=== PATIENT | male | born 1995 | race African-American/Black ===

== ENCOUNTER 2017-04-19 15:12 | Inpatient (IN) | payer BC, OTHER ==
[~2017-04-19] VITALS: Ht 182.9 cm; Wt 75.8 kg
--- NOTE | ~2017-04-19 | O ---
[facility] [place] [address] OPERATIVE REPORT Name: CHIQUI MASTERSON Room #: 541-P [facility] IN M.R.#: [id number] Admission: 04/19/17 Attend Phys: Willian Escobar MD, F Discharge: 04/26/17 Date of : [birth year] Report #: [id number] THIS REPORT FOR: //name// [facility] DATE OF SERVICE: 04/23/2017 PREOPERATIVE DIAGNOSIS: Hemoperitoneum with possible pelvic abscess. POSTOPERATIVE DIAGNOSIS: Hemoperitoneum with developing pelvic abscess. PROCEDURE: Diagnostic laparoscopy, evacuation of peritoneal hematoma, and drainage of pelvic abscess. SURGEON: Willian Escobar M.D. INDICATIONS: A 21-year-old male, who underwent a laparoscopic appendectomy on 04/13/2016 with early appendicitis and exudate on the appendix, who then developed in the first 24 hours following operation a hemoperitoneum. The patient was sent home on amoxicillin and was stabilized, but then he began to develop a fever with abdominal pain and nausea on 04/19/2017 and returned to the emergency room where a CT scan demonstrating hemoperitoneum and hemoglobin of 8. The patient has been on IV antibiotics, and a repeat CT scan on 04/23/2017 demonstrated increasing amount of fluid in the perihepatic area, as well as the pelvis, requiring operation and drainage. OPERATIVE PROCEDURE: The patient was on antibiotics. He had a thorough discussion of the procedure, benefits, and risks, gave informed consent to proceed. He was brought to the operating suite and had satisfactory induction of general endotracheal anesthesia. The patient's initial strapping to the table was performed for secure placement on the table in the supine position. A Kearney catheter was inserted. Sterile paint of the entire abdomen was performed with DuraPrep solution. Initially, the infraumbilical incision was opened. The 0 PDS suture was cut. The fascia was then opened with finger dissection gently. Complete finger dissection in a circumferential manner sweeping 360 degrees. The fascia and sweeping of the bowel away from the anterior abdominal wall was performed. The 12 mm Cristina port with the balloon was then inflated under direct vision. Pneumoperitoneum was established. Photographs were taken and made part of the medical record. This revealed extensive hemoperitoneum. A 5 mm port was placed just to the left of midline under direct vision. Again, the 12 mm port was removed and finger dissection and finger sweeping of the bowel away from the anterior abdominal wall in 360 degree circumferential manner was performed. The loculation of the pelvis was entered with finger dissection and copious evacuation of the hemoperitoneum, which had a foul smell to it was performed. Cultures were taken times 2 of the peritoneal fluid. The [address] [address] OPERATIVE REPORT Name: CHIQUI MASTERSON Room #: 541-P DIS IN M.R.#: [id number] Admission: 04/19/17 Attend Phys: Willian Escobar MD, F Discharge: 04/26/17 Date of : [birth year] Report #: [id number] pneumoperitoneum was reinitiated and again copious irrigation of the peritoneal cavity including the perihepatic tissues with 9 liters of saline and evacuation of all irrigating solution was performed. After this was completed, a 15-Syriac ESTUARDO drain was inserted by finger dissection into the pelvic hematoma and abscess cavity by finger dissection. After positioning, the pneumoperitoneum was deflated. 12 mm port was removed. 5 mm port had been removed previously. 0 PDS suture was utilized to approximate the fascia at the infraumbilical position under direct vision. Skin margins were then approximated with subcuticular 4-0 Monocryl. Estimated blood loss of new blood was less than 10 mL. Old blood evacuation was approximately 500 mL. The patient tolerated the procedure well. He had a reduction in temperature during the procedure to normal. His sinus tachycardia resolved to a pulse rate between 80 and 90. He returned to recovery room in stable and satisfactory condition with Kearney to dependent drainage and satisfactory urine output. <ELECTRONICALLY SIGNED> By: Willian Escobar MD, FACS 04/27/17 1720 [id number] Willian Escobar MD, FACS /nt
--- NOTE | ~2017-04-19 | HC ---
[facility] [place] [address] CONSULTATION Name: CHIQUI MASTERSON Room #: 541- ADM IN M.R.#: [id number] Admission: 04/19/17 Attend Phys: Willian Escobar MD, F Discharge: Date of : [birth year] Report #: [id number] THIS REPORT FOR: //name// [facility] DATE OF SERVICE: 04/20/2017 ATTENDING PHYSICIAN: Dr. Escobar. REASON FOR CONSULTATION: Antibiotic management. HISTORY OF PRESENT ILLNESS: The patient is a 21-year-old -[place] man who undergoes laparoscopic appendectomy on April [address] Escobar. Postoperatively, he develops an anemia. The patient develops increasing pain, fevers and is admitted with a diagnosis of intraabdominal pain, possibly secondary to bleeding from surgical site. The patient is on treatment with Rocephin and Flagyl at the hospital. On outpatient, he has been on Augmentin 875 b.i.d. as well as p.r.n. ondansetron, ibuprofen and hydrocodone. At present, he is mainly complaining of significant abdominal pain. I did discuss the patient's situation with Dr. Willian Escobar pre and post-consultation and I recommended changing antibiotic to Zosyn and continue Flagyl. The patient is mainly complaining of abdominal pains and nausea. PAST MEDICAL HISTORY: Essentially noncontributory besides recent appendectomy. DRUG ALLERGIES: None listed. MEDICATIONS: The patient is on Rocephin 1 gram IV daily, Flagyl 1 gram IV daily, intravenous fluids D5 half normal saline with 20 mEq of potassium chloride 1000 mL every 8 hours, p.r.n. ondansetron, p.r.n. hydromorphone. SOCIAL HISTORY: See H and P, old records. FAMILY HISTORY: See H and P, old records. REVIEW OF SYSTEMS: As above. PHYSICAL EXAMINATION: GENERAL: Well developed, not toxic looking man, but rather uncomfortable. VITAL SIGNS: Temperature maximum , 100.2 on April 20 at midnight, down to on April 20 at 2000 hours, down to 97.8 today, pulse 97, respirations 20, BP 118/66. HEENMT: Within range. NECK: Supple, no thyromegaly. LUNGS: Clear. [facility] [address] [place] [address] CONSULTATION Name: CHIQUI MASTERSON Room #: 541-P ADM IN M.R.#: [id number] Admission: 04/19/17 Attend Phys: Willian Escobar MD, F Discharge: Date of : [birth year] Report #: [id number] HEART: S1, S2. ABDOMEN: Very tender with rebound tenderness and decreased bowel sounds. GENITALIA AND RECTAL: Deferred. EXTREMITIES: No clubbing, cyanosis. NEUROLOGIC: Grossly within normal limits. LABORATORY DATA: Sodium 134, potassium 3.9, CO2 27, BUN 12, creatinine 0.9, total bilirubin 1.1. Alkaline phosphatase normal, SGPT normal, albumin 2.6. White blood cell count is 14,800; hemoglobin 8 g/dL; platelets 329,000 with differential revealing 79% neutrophils, 7% lymphocytes, 11% monocytes. Note is made that the hemoglobin was 12.7 on April 13 and on April 14, the hemoglobin drops to 8.1 g/dL. MICROBIOLOGY DATA: Blood cultures obtained on readmission and they are negative so far. RADIOLOGY EVALUATION: A CT scan of the abdomen and pelvis on April 19 revealed large amount of heterogeneous fluid throughout the abdomen, primarily within the pelvic region, most likely hemorrhagic in nature. No abscess or free fluid noted. ASSESSMENT: 1. Fever, possibly secondary #2. 2. Intraperitoneal bleed. 3. Status post laparoscopic appendectomy. SUGGESTIONS: Recommend continue Flagyl. Discontinue Rocephin, start Zosyn 3.375 grams IV every 6 hours, which has some wider spectrum coverage against entire gram-negatives as well as pseudomonas and anaerobic organism of the microaerolophilic Streptococci type germs. The patient is not toxic. We will continue current regimen and as discussed with Dr. Escobar, We will repeat CT scan of abdomen and pelvis on Thursday. Dr. Willian Escobra, thank you for requesting my suggestions in the care of your patient. <ELECTRONICALLY SIGNED> By: Fish Hawkins MD 04/22/17 1033 [id number] 2225 Fish Hawkins MD /nt
--- NOTE | ~2017-04-19 | HC ---
[facility] [place] [address] CONSULTATION Name: CHIQUI MASTERSON Room #: 541-P ADM IN M.R.#: [id number] Admission: 04/19/17 Attend Phys: Willian Escobar MD, F Discharge: Date of : [birth year] Report #: [id number] THIS REPORT FOR: //name// [facility] DATE OF SERVICE: 04/21/2017 REASON FOR CONSULTATION: Left pleuritic chest pain. IMPRESSION: 1. Left lower lobe atelectasis, possible pneumonia, small effusion. 2. Intraperitoneal bleed. 3. Status post laparoscopic appendectomy. 4. Question history of asthma. PLAN: Pulmonary toilet, aerosol therapy. Monitor closely with you. We will need to watch for possible intraabdominal abscess. HISTORY OF PRESENT ILLNESS: A very pleasant 21-year-old male admitted on April 13 with abdominal pain, taken to surgery on April 13 for nonperforated lap appendectomy. It appears did well and discharged home on the . Returned to emergency room on the with nausea, vomiting, abdominal pain, loose stools, fever. Relates abdomen was better today; however, developed left-sided chest pain with movement of arm and deep breath. PAST SURGICAL HISTORY: Laparoscopic appendectomy. CURRENT MEDICATIONS: Included Dilaudid, Pepcid, Zocid, Reglan. ALLERGIES: No known. FAMILY HISTORY: Negative for blood clots. SOCIAL HISTORY: Positive tobacco in past. Works as a security software engineer. Negative drugs of abuse. REVIEW OF SYSTEMS: He relates he had respiratory disease. He does not recall and parents were not in room. No heart problems, no history of DVT, PE. He does relate he has had some loose stools in the past and he is having some loose stools at present. He denies hemoptysis or hematemesis, bilious colored vomitus, no edema. PHYSICAL EXAMINATION: VITAL SIGNS: T-max 100.9, pulse 94, respirations 20, BP 121/65. EYES: Negative icterus. [facility] [address] [place] [address] CONSULTATION Name: CHIQUI MASTERSON Room #: 541-P ADM IN M.R.#: [id number] Admission: 04/19/17 Attend Phys: Willian Escobar MD, F Discharge: Date of : [birth year] Report #: [id number] NECK: Trachea midline. LUNGS: Showed slight decrease on left and obvious pain with deep inspiration. HEART: Regular. ABDOMEN: Bowel sounds present, mild tender. EXTREMITIES: Showed no clubbing, cyanosis, edema. NEUROLOGIC: The patient is alert and oriented. LABORATORY DATA: Venous Doppler of lower extremity negative. CT PE protocol showed left lower lobe atelectasis, small left effusion, we will need to monitor this, intraabdominal ascites, pH 7.429, pCO2 38, pO2 80 on room air. Chest x-ray showed no acute. Blood cultures negative. We will follow closely with you. By: 1950 0054 Maikel Augustin MD /nt
[~2017-04-19 15:12] MED LIST: AUGMENTIN 875875 MG PO; HYDROCODONE-AP1 EAC6 PO; IBUPROFEN 600600 M1 PO; ZOFRAN4 MG PO
[2017-04-19 15:13] VITALS: BP 109/64
[2017-04-19 16:00] LABS: HEMATOCRIT 28.2 % (42.0-52.0); HEMOGLOBIN 9.3 gm/dL (14.0-18.0); MCH 27.2 pg (26.0-34.0); MCHC 32.8 g/dL (28.0-37.0); MCV 82.9 fL (80.0-100.0); PLATELET COUNT 376 thou/uL (150-400); RBC 3.41 mil/uL (4.50-6.00); RDW 15.2 % (10.5-14.5); WBC 16.7 thou/uL (4.0-11.0)
[2017-04-19 16:09] LABS: MANUAL DIFF YES
[2017-04-19 16:15] LABS: CALCIUM 9.4 mg/dL (8.5-10.1); POTASSIUM 3.6 mmol/L (3.5-5.1)
[2017-04-19 16:20] LABS: ALBUMIN 3.3 g/dL (3.4-5.0); TOTAL BILIRUBIN 1.6 mg/dL (<0.1-1.0); TOTAL PROTEIN 8.1 g/dL (6.4-8.2)
[2017-04-19 17:17] LABS: ABSOLUTE NEUTROPHILS 13.7 thou/uL (1.4-8.2); TOTAL CELL COUNT 100
[2017-04-19 19:50] VITALS: BP 108/51
[2017-04-19 23:30] VITALS: BP 129/62
[2017-04-20 04:21] LABS: HEMATOCRIT 24.4 % (42.0-52.0); MCH 27.2 pg (26.0-34.0); MCHC 32.7 g/dL (28.0-37.0); MCV 83.2 fL (80.0-100.0); PLATELET COUNT 329 thou/uL (150-400); RBC 2.94 mil/uL (4.50-6.00); RDW 15.2 % (10.5-14.5); WBC 14.8 thou/uL (4.0-11.0)
[2017-04-20 04:25] LABS: MANUAL DIFF YES
[2017-04-20 05:37] LABS: ALBUMIN 2.6 g/dL (3.4-5.0); CALCIUM 8.6 mg/dL (8.5-10.1); CREATININE 0.9 mg/dL (0.7-1.3); POTASSIUM 3.9 mmol/L (3.5-5.1); TOTAL BILIRUBIN 1.1 mg/dL (<0.1-1.0); TOTAL PROTEIN 6.9 g/dL (6.4-8.2)
[2017-04-20 07:40] VITALS: BP 123/65
[2017-04-20 08:14] LABS: ABSOLUTE NEUTROPHILS 11.7 thou/uL (1.4-8.2); ATYPICAL LYMPHS 1 %; METAMYELOCYTES 1 %; MYELOCYTES 1 %; TOTAL CELL COUNT 100
[2017-04-20 08:15] LABS: ANISOCYTOSIS 1+
[2017-04-20 15:45] VITALS: BP 110/58
[2017-04-20 20:00] VITALS: BP 132/75
[2017-04-21 03:26] VITALS: BP 131/73
[2017-04-21 04:04] LABS: HEMATOCRIT 24.4 % (42.0-52.0); HEMOGLOBIN 8.1 gm/dL (14.0-18.0); MCH 27.3 pg (26.0-34.0); MCHC 33.1 g/dL (28.0-37.0); MCV 82.4 fL (80.0-100.0); RBC 2.96 mil/uL (4.50-6.00); WBC 15.3 thou/uL (4.0-11.0)
[2017-04-21 04:08] LABS: CALCIUM 8.7 mg/dL (8.5-10.1); POTASSIUM 4.2 mmol/L (3.5-5.1)
[2017-04-21 04:16] LABS: MANUAL DIFF YES; PLATELET COUNT 413 thou/uL (150-400)
[2017-04-21 07:42] VITALS: BP 118/66
[2017-04-21 11:42] VITALS: BP 121/65
[2017-04-21 12:18] LABS: ABSOLUTE NEUTROPHILS 13.2 thou/uL (1.4-8.2); METAMYELOCYTES 1 %; TOTAL CELL COUNT 100
[2017-04-21 12:19] LABS: ANISOCYTOSIS 1+; OVALOCYTES FEW
[2017-04-21 14:51] LABS: ABG SAMPLE TYPE ARTERIAL; BE(vivo) 0.3 mmol/L (-2 to +3); FIO2 0.21 %; HCO3 24.5 mmol/L (22.0-26.0); LACTATE 0.82 mmol/L (0.5-2.0); O2(CT) 11.2 mL/dL (15.0-23.0); O2Hb 93.7 % (92.0-98.0); PCO2 37.9 mmHg (35.0-45.0); PO2 80.4 mmHg (80.0-100.0); STICK SITE L.RADIAL; pH 7.429 (7.360-7.450); sO2 96.2 % (92.0-98.0); tCO2 25.7 mmol/L (24.0-30.0)
[2017-04-21 16:39] VITALS: BP 121/72
[2017-04-21 19:40] VITALS: BP 130/71
[2017-04-22 03:26] VITALS: BP 136/85
[2017-04-22 05:43] LABS: HEMATOCRIT 21.6 % (42.0-52.0); HEMOGLOBIN 7.2 gm/dL (14.0-18.0); MCH 27.4 pg (26.0-34.0); MCHC 33.3 g/dL (28.0-37.0); MCV 82.4 fL (80.0-100.0); PLATELET COUNT 446 thou/uL (150-400); RBC 2.62 mil/uL (4.50-6.00); RDW 15.4 % (10.5-14.5); WBC 16.7 thou/uL (4.0-11.0)
[2017-04-22 05:51] LABS: MANUAL DIFF YES
[2017-04-22 06:01] LABS: ALBUMIN 2.5 g/dL (3.4-5.0); CALCIUM 8.2 mg/dL (8.5-10.1); MAGNESIUM 1.9 mg/dL (1.8-2.4); TOTAL BILIRUBIN 1.3 mg/dL (<0.1-1.0); TOTAL PROTEIN 6.3 g/dL (6.4-8.2)
[2017-04-22 08:03] VITALS: BP 129/67
[2017-04-22 08:11] LABS: ABSOLUTE NEUTROPHILS 14.2 thou/uL (1.4-8.2); ANISOCYTOSIS 1+; TOTAL CELL COUNT 100
[2017-04-22 08:12] LABS: HYPOCHROMASIA 1+; OVALOCYTES FEW
[2017-04-22 17:24] VITALS: BP 125/63
[2017-04-22 20:00] VITALS: BP 141/70
[2017-04-23] VITALS (7 sets, daily range): BP systolic 124–151; BP diastolic 65–90
[2017-04-23 06:00] LABS: ABSOLUTE NEUTROPHILS 12.5 thou/uL (1.4-8.2); BASOPHILS 0.3 % (0.0-2.0); EOSINOPHILS 0.8 % (0.0-3.0); LYMPHOCYTES 5.8 % (24.0-44.0); MCH 27.1 pg (26.0-34.0); MCHC 33.6 g/dL (28.0-37.0); MCV 80.9 fL (80.0-100.0); MONOCYTES 7.7 % (1.0-8.0); PLATELET COUNT 472 thou/uL (150-400); POLYS 85.4 % (36.0-66.0); RDW 15.6 % (10.5-14.5); WBC 14.7 thou/uL (4.0-11.0)
[2017-04-23 06:05] LABS: MANUAL DIFF NO
[2017-04-23 06:10] LABS: CALCIUM 8.1 mg/dL (8.5-10.1); CREATININE 0.9 mg/dL (0.7-1.3); POTASSIUM 3.8 mmol/L (3.5-5.1)
[2017-04-23 16:22] LABS: HEMATOCRIT 22.1 % (42.0-52.0); HEMOGLOBIN 7.3 gm/dL (14.0-18.0); MCHC 33.1 g/dL (28.0-37.0); MCV 81.4 fL (80.0-100.0); RBC 2.71 mil/uL (4.50-6.00); RDW 15.8 % (10.5-14.5); WBC 16.8 thou/uL (4.0-11.0)
[2017-04-23 16:32] LABS: CALCIUM 8.1 mg/dL (8.5-10.1); CREATININE 0.9 mg/dL (0.7-1.3); POTASSIUM 3.7 mmol/L (3.5-5.1)
[2017-04-24 02:00] LABS: HEMOGLOBIN 8.7 gm/dL (14.0-18.0); MCH 26.5 pg (26.0-34.0); RBC 3.29 mil/uL (4.50-6.00)
[2017-04-24 02:03] LABS: HEMATOCRIT 26.7 % (42.0-52.0); MCHC 32.6 g/dL (28.0-37.0); MCV 81.2 fL (80.0-100.0); RDW 15.6 % (10.5-14.5); WBC 25.7 thou/uL (4.0-11.0)
[2017-04-24 02:05] LABS: ALBUMIN 1.9 g/dL (3.4-5.0); CALCIUM 7.3 mg/dL (8.5-10.1); CREATININE 0.9 mg/dL (0.7-1.3); TOTAL BILIRUBIN 0.7 mg/dL (<0.1-1.0); TOTAL PROTEIN 5.6 g/dL (6.4-8.2)
[2017-04-24 04:38] VITALS: BP 132/71
[2017-04-24 07:35] VITALS: BP 128/68
[2017-04-24 16:07] VITALS: BP 123/66
[2017-04-24 20:14] VITALS: BP 126/71
[2017-04-25 03:10] VITALS: BP 116/58
[2017-04-25 03:48] LABS: HEMATOCRIT 21.3 % (42.0-52.0); MCH 26.8 pg (26.0-34.0); MCHC 32.9 g/dL (28.0-37.0); MCV 81.3 fL (80.0-100.0); PLATELET COUNT 576 thou/uL (150-400); RBC 2.61 mil/uL (4.50-6.00); RDW 15.6 % (10.5-14.5); WBC 19.3 thou/uL (4.0-11.0)
[2017-04-25 03:55] LABS: MANUAL DIFF YES
[2017-04-25 04:10] LABS: CALCIUM 7.8 mg/dL (8.5-10.1); CREATININE 0.8 mg/dL (0.7-1.3); MAGNESIUM 2.1 mg/dL (1.8-2.4); PHOSPHORUS 2.5 mg/dL (2.5-4.9)
[2017-04-25 05:29] LABS: ABSOLUTE NEUTROPHILS 17.8 thou/uL (1.4-8.2); ANISOCYTOSIS 2+; HYPOCHROMASIA SLIGHT; TOTAL CELL COUNT 100
[2017-04-25 07:47] VITALS: BP 132/68
[2017-04-25 16:03] VITALS: BP 136/78
[2017-04-25 19:38] VITALS: BP 139/69
[2017-04-26] VITALS (7 sets, daily range): BP systolic 122–135; BP diastolic 66–79
[2017-04-26 03:41] LABS: MCH 26.9 pg (26.0-34.0); MCHC 33.8 g/dL (28.0-37.0); MCV 79.6 fL (80.0-100.0); PLATELET COUNT 532 thou/uL (150-400); RBC 2.35 mil/uL (4.50-6.00); RDW 15.5 % (10.5-14.5)
[2017-04-26 03:46] LABS: MANUAL DIFF YES
[2017-04-26 03:47] LABS: HEMATOCRIT 18.7 % (42.0-52.0); HEMOGLOBIN 6.3 gm/dL (14.0-18.0)
[2017-04-26 03:49] LABS: CALCIUM 7.4 mg/dL (8.5-10.1); CREATININE 0.8 mg/dL (0.7-1.3); POTASSIUM 3.7 mmol/L (3.5-5.1)
[2017-04-26 04:38] LABS: ABSOLUTE NEUTROPHILS 13.9 thou/uL (1.4-8.2); ANISOCYTOSIS 1+; HYPOCHROMASIA 1+; MICROCYTES 1+; POLYCHROMASIA OCCASIONAL; TOTAL CELL COUNT 100
[2017-04-26 09:26] LABS: ALBUMIN 1.9 g/dL (3.4-5.0); DIRECT BILIRUBIN 0.1 mg/dL (<0.1-0.3); TOTAL BILIRUBIN 0.5 mg/dL (<0.1-1.0); TOTAL PROTEIN 5.8 g/dL (6.4-8.2)
[2017-04-26 09:38] LABS: APTT 34.4 Seconds (24.5-32.8); INR 1.4
== END 2017-04-26 15:50 | disposition short-term general hospital (02) | DRG 356 ==
LOC: ER 15:12 → EROBS 18:50 → 5S 18:50
PROVIDERS: Emergency Medicine; Internal Medicine Pulmonary Disease; Otolaryngology; Surgery
PROC: 02HV33Z Insertion of Infusion Device into Superior Vena Cava, Percutaneous Approach (ICD-10-PCS; principal; 2017-04-20)
PROC: B548ZZA Ultrasonography of Superior Vena Cava, Guidance (ICD-10-PCS; principal; 2017-04-20)
PROC: 0DCW0ZZ Extirpation of Matter from Peritoneum, Open Approach (ICD-10-PCS; 2017-04-23)
PROC: 0WJG4ZZ Inspection of Peritoneal Cavity, Percutaneous Endoscopic Approach (ICD-10-PCS; 2017-04-23)
PROC: 30233N1 Transfusion of Nonautologous Red Blood Cells into Peripheral Vein, Percutaneous Approach (ICD-10-PCS; 2017-04-26)
DX: K65.1 Peritoneal abscess (principal); K66.1 Hemoperitoneum; K56.7 Ileus, unspecified; J98.11 Atelectasis; K91.840 Postprocedural hemorrhage of a digestive system organ or structure following a digestive system procedure; R58 Hemorrhage, not elsewhere classified; B96.20 Unspecified Escherichia coli [E. coli] as the cause of diseases classified elsewhere; D64.9 Anemia, unspecified; R07.9 Chest pain, unspecified; F17.210 Nicotine dependence, cigarettes, uncomplicated; D72.829 Elevated white blood cell count, unspecified; J45.909 Unspecified asthma, uncomplicated; Z90.49 Acquired absence of other specified parts of digestive tract
CPT/HCPCS: 10086; 27000; 50010; 50101; 50249; 50331; 50386; 50455; 50555; 50623; 50962; 51489; 52265; 53307; 53314; 54022; 54118; 56462; 56525; 56526; 57092; 62110; 62900; 70005